=== PATIENT | female | born 1960 | race Caucasian/White ===

== ENCOUNTER 2020-01-05 06:00 | Outpatient (RCR) | payer OTHER, SELFPAY | END 2020-01-05 23:59 | disposition home or self-care (01) | LOC: WPT 06:00 | PROVIDERS: Referring Provider Nurse Practitioner Family; Visit Provider Nurse Practitioner Family | DX: H81.10 Benign paroxysmal vertigo, unspecified ear (principal) | CPT/HCPCS: 97110; 97161; 97530 ==

== ENCOUNTER 2020-01-06 06:00 | Outpatient (RCR) | payer OTHER, SELFPAY | END 2020-02-05 23:59 | disposition home or self-care (01) | LOC: WPT 06:00 | PROVIDERS: Referring Provider Nurse Practitioner Family; Visit Provider Nurse Practitioner Family | DX: H81.10 Benign paroxysmal vertigo, unspecified ear (principal) | CPT/HCPCS: 97110; 97530 ==

== ENCOUNTER → 2020-10-07 16:56 | Outpatient (BNVA) | payer OTHER, SELFPAY | PROVIDERS: Visit Provider Emergency Medicine | DX: Z20.828 Contact with and (suspected) exposure to other viral communicable diseases (principal) | CPT/HCPCS: 87635 ==

== ENCOUNTER → 2020-10-16 10:17 | Outpatient (BNVA) | payer OTHER, SELFPAY | PROVIDERS: Visit Provider Nurse Practitioner Family | DX: Z20.822 Contact with and (suspected) exposure to COVID-19 (principal) | CPT/HCPCS: 87635 ==

== ENCOUNTER 2020-10-26 15:25 | Emergency (ER) | payer OTHER, SELFPAY ==
[2020-10-26 15:54] VITALS: BP 172/82; PULSE 81; RESP 24; TEMP 36.6; O2SAT 98; BMI 34.9
--- NOTE | 2020-10-26 16:27 | XRR_ITS ---
PROCEDURE INFORMATION: Exam: XR Chest, 1 View Exam date and time: 10/26/2020 4:29 PM Age: 60 years old Clinical indication: Shortness of breath; Additional info: SOB TECHNIQUE: Imaging protocol: XR of the chest Views: 1 view. COMPARISON: No relevant prior studies available. FINDINGS: Lungs: Unremarkable. No consolidation. Pleural spaces: Unremarkable. No pleural effusion. No pneumothorax. Heart/Mediastinum: Unremarkable. No cardiomegaly. Bones/joints: Unremarkable. XR/XR chest 1V portable [id number] IMPRESSION: No acute findings.
--- NOTE | 2020-10-26 16:28 | ECG_ITS ---
[facility] Test Date: 2020-10-26 Pat Name: Magdalena Rodriguez Department: Room: Gender: Female Loader: : 1960 Requested By: Jeronimo Sears I Order Number: [id number] Reading MD: Jazmin Kumar M.D. Measurements Intervals [place] Rate: 71 P: 35 KS: 171 QRS: 26 QRSD: 126 T: 37 QT: 407 QTc: 444 Interpretive Statements SINUS RHYTHM POSSIBLE ANTERIOR MYOCARDIAL INFARCTION , PROBABLY OLD [30 ms Q WAVE IN V3/V4, OR R < 0.2 mV IN V4] No previous ECG available for comparison Electronically Signed On 10-27-2020 19:34:37 BOTTOM IRONER by Jazmin Kumar M.D. [id number]
[2020-10-26 17:37] LABS: Basophils % 0.4 %; Eosinophils # 0.1 10^3/uL (0.0-0.8); Eosinophils % 0.8 %; Hematocrit 42.5 % (37.0-47.0); Hemoglobin 14.6 g/dL (11.5-15.3); Lymphocytes # 2.2 10^3/uL (0.8-4.8); Lymphocytes % 28.8 %; Mean Corpuscular HGB Conc 34.4 g/dL (30.0-36.0); Mean Corpuscular Hemoglobin 30.7 pg (28.0-34.0); Mean Corpuscular Volume 89.3 fL (81-99); Mean Platelet Volume 10.3 fL (7.4-10.4); Monocytes # 0.7 10^3/uL (0.2-0.9); Monocytes % 9.1 %; Neutrophils # 4.69 10^3/uL (1.8-7.7); Neutrophils % 60.8 %; Nucleated Red Blood Cells % 0 %; Platelet Count 374 10^3/cmm (130-400); Red Blood Count 4.76 10^6/uL (4.1-5.3); Red Cell Distribution Width 12.6 % (12.1-15.1); White Blood Count 7.7 10^3/uL (4.0-10.0)
[2020-10-26 17:53] LABS: Lactic Sepsis W/Reflex 2.3 mmol/L (0.5-2.2)
[2020-10-26 17:56] LABS: Troponin(5th) Baseline 7 ng/L (0-10)
[2020-10-26 18:06] LABS: NT Pro B Type Natriuretic Pept 82 pg/mL (0-125); Procalcitonin 0.03 ng/mL (0-0.5)
[2020-10-26 18:17] LABS: Alanine Aminotransferase 29 U/L (0-33); Albumin Level 4.7 g/dL (3.5-5.2); Alkaline Phosphatase 89 IU/L (35-105); Aspartate Amino Transferase 22 U/L (0-32); Blood Urea Nitrogen 14 mg/dL (6-20); Calcium 10.7 mg/dL (8.5-10.5); Carbon Dioxide 23 mmol/L (22-29); Chloride 100 mmol/L (98-107); Globulin 3.2 g/dL (1.3-4.6); Glomerular Filtration Rate 102.7 mL/min (90-130); Glucose 79 mg/dL (65-115); Osmolality Calculated 285 mOsm/kg (285-295); Sodium 138 mmol/L (136-145); Total Bilirubin 0.5 mg/dL (0.15-1.2); Total Protein 7.9 g/dL (6.6-8.7)
[2020-10-26 18:18] LABS: Anion Gap 18.6 (5-19); Potassium 3.6 mmol/L (3.5-5.1)
--- NOTE | 2020-10-26 18:41 | CTR_ITS ---
PROCEDURE INFORMATION: Exam: CT Angiography Chest With Contrast Exam date and time: 10/26/2020 7:02 PM Age: 60 years old Clinical indication: Shortness of breath; Additional info: SOB, post covid TECHNIQUE: Imaging protocol: Computed tomographic angiography of the chest with contrast. 3D rendering (Not supervised by radiologist): MIP and/or 3D reconstructed images were created by the technologist. Radiation optimization: All CT scans at this facility use at least one of these dose optimization techniques: automated exposure control; mA and/or kV adjustment per patient size (includes targeted exams where dose is matched to clinical indication); or iterative reconstruction. Contrast material: OMNI 350; Contrast volume: 95 ml; Contrast route: INTRAVENOUS (IV); COMPARISON: CR XR chest 1V portable [id number] 10/26/2020 4:32 PM RADIATION DOSE METRICS: Total DLP (mGy-cm): 576.01 FINDINGS: Pulmonary arteries: Normal. No pulmonary emboli. Aorta: Unremarkable. No aortic aneurysm. No aortic dissection. Lungs: Unremarkable. No consolidation. No masses. Pleural spaces: Unremarkable. No pneumothorax. No pleural effusion. Heart: Unremarkable. No cardiomegaly. No pericardial effusion. Lymph nodes: Unremarkable. No enlarged lymph nodes. Bones/joints: Unremarkable. No acute fracture. Soft tissues: Unremarkable. CT/CT angio chest PE [facility] [id number] IMPRESSION: No acute findings. Radiation Dose CTDIVOL = (mGy): DLP = 576.01 (mGy-cm)
[2020-10-26] MEDS: iohexol 350 mg/mL 100 mL Btl IV (19:14)
[2020-10-26 19:22] LABS: Reflex Lactate Order REFLEX LACTIC ORDERD
[2020-10-26 19:27] VITALS: BP 203/112; PULSE 72; RESP 20; O2SAT 96
[2020-10-26 19:27] LABS: Troponin 5 2HR 7.48 ng/L (0-10); Troponin 5 2HR Delta 0.48 ABS# (0-10)
[2020-10-26 19:28] VITALS: O2SAT 96
[2020-10-26] MEDS: sodium chloride 0.9% 1,000 ML 999 ML IV (19:30)
--- NOTE | 2020-10-26 19:59 | W.ED.COVID ---
HPI - COVID General: Chief Complaint: COVID symptoms Stated Complaint: cough, trouble breathing Time Seen by Provider: 10/26/20 16:07 Source: patient Mode of arrival: ambulatory Limitations: no limitations Triage information: Has fever, cough or shortness of breath. Exposure to COVID + person last 14 days History of Present Illness: HPI Narrative: The patient is a 60-year-old female who was recently diagnosed with COVID-19 10 days ago. She was released off of quarantine 4 days ago. She has been having trouble breathing and got worse today. She went to see her primary care provider who wanted her evaluated especially for PE as she was dyspneic in the office. Oxygen saturations were normal in the office. Patient denies fever, continues to have cough and trouble breathing. MD complaint: known COVID positive Prior covid testing: yes, results known COVID 19 common symptoms: positive cough and dyspnea; negative fever(s), chills, non-productive cough, productive cough, fatigue, body aches, headache(s), loss of sense of smell and/or taste, throat pain, nasal congestion, nausea, vomiting or diarrhea COVID 19 other sytmptoms: negative chest pressure, chest pain, pleuritic pain, requiring oxygen, requiring more oxygen, respiratory distress, cyanosis, lethargy, confusion, new neurological complaints or other concerning symptoms Onset (ago): hour(s) (6) Severity: moderate Pertinent comorbid conditions: obesity Treatment prior to arrival: steroids COVID Results: SARS-CoV-2 RNA (RT-PCR) Detected (NOT DETECTED) A 10/16/20 10:17 10/16/20 Review of Systems General: Reports: 10 or more systems reviewed and unremarkable except in HPI and below Const: Denies: fever(s), chills, body aches or fatigue Eyes: Denies: change in vision or blurry vision ENMT: Denies: throat pain or nasal congestion Card: Denies: chest pain Resp: Reports: dyspnea; Denies: productive cough or non-productive cough GI: Denies: nausea, vomiting or diarrhea : Denies: flank pain, difficulty voiding, dysuria, urinary frequency, urinary urgency or urinary hesitancy Musc: Denies: neck pain, back pain or extremity swelling Skin/Breast: Denies: rash, pruritus or erythema Neuro: Denies: headache(s) or confusion Endo: Denies: polyuria, polydipsia or tired all the time [facility] ED PFSH: Medical History (Reviewed 10/26/20 @ 21:01 by Jeronimo Sears MD, [facility] [place]) Essential hypertension History of 2019 novel coronavirus disease (COVID-19) Mixed hyperlipidemia Surgical History (Reviewed 10/26/20 @ 21:01 by Jeronimo Sears MD, [facility] [place]) History of arthroplasty of both knees Social History (Reviewed 10/26/20 @ 21:01 by Jeronimo Sears MD, [facility] [place]) Smoking and tobacco status: never smoked Second hand smoke exposure: No Smoking risk assessment/counseling performed?: No Alcohol intake: never Desire information about alcohol rehabilitation?: No Counseling given: No Desire information about substance/drug rehabilitation?: No Counseling given: No Physical Exam Const: COMMON NORMALS: no acute distress, average body habitus, patient oriented x3, no limitations, healthy appearing, alert and well nourished Neck/C-Spine: COMMON NORMALS: full ROM, supple, no meningeal signs, no JVD and No carotid bruits Resp: COMMON NORMALS: No retractions, No use of accessory muscles, clear to auscultation bilaterally and percussion normal EFFORT & INSPECTION: Yes labored AUSCULTATION: clear to auscultation bilaterally PERCUSSION: percussion normal Cardio: COMMON NORMALS: no JVD, regular rate, regular rhythm, S1 normal heart sound present, S2 normal heart sound present, No gallops present (Cardio), No clicks present (Cardio), No murmurs present (Cardio), No rub (Cardio) and Peripheral pulses 2+ throughout RATE: regular rate RHYTHM: regular rhythm HEART SOUNDS: S1 normal heart sound present and S2 normal heart sound present PERIPHERAL PULSES: Peripheral pulses 2+ throughout GI: COMMON NORMALS: Normal to inspection, nondistended, normoactive bowel sounds present, Soft to palpation, non-tender, No hepatosplenomegaly present, no masses and no bruits PALPATION: Yes Soft to palpation and Yes No hepatosplenomegaly present Extremity: COMMON NORMALS: normal to inspection, full ROM, capillary refill normal, no calf tenderness and no pedal edema Neuro: COMMON NORMALS: patient oriented x3 SENSORIUM/ORIENTATION: Yes alert MENINGEAL SIGNS: Yes no meningeal signs Skin: COMMON NORMALS: no rashes or lesions noted, no wounds, turgor normal, no jaundice, no petechiae and no mottling GENERAL SKIN EXAM: no rashes or lesions noted and turgor normal Course Reevaluation(s): Reevaluation #1: Discussed her lab and imaging findings with her. Negative for acute findings. Mildly elevated lactic acid and she is given IV fluids. Negative high-sensitivity troponin x2. Negative CTA. Normal BNP. Nothing acute going on we will discharge her home. Advised that this may be the effect of the Covid and she is advised to rest and not go to work for another week. She voiced understanding and is in agreement with the plan. Time: 19:59 Vital Signs: Vital signs: Vital Signs Temperature 97.9 F 10/26/20 15:54 Pulse Rate 67 10/26/20 20:20 Respiratory Rate 22 H 10/26/20 20:20 Blood Pressure 203/112 10/26/20 19:27 Pulse Oximetry 97 10/26/20 20:20 MDM - COVID MDM Narrative: Medical decision making narrative: 60-year-old female patient who was recently diagnosed with COVID-19 and who presents with shortness of breath. She is off of her quarantine, evaluation in the ED was unremarkable. Negative high-sensitivity troponin, negative CTA of her lungs. She is discharged home with no new orders. Medical Records: Attestation: I reviewed the patient's medical records. Lab Data: Attestation: I reviewed the patient's lab results. Labs: Lab Results 10/26/20 10/26/20 10/26/20 Range/Units 17:26 17:26 17:26 WBC 7.7 (4.0-10.0) 10^3/ uL RBC 4.76 (4.1-5.3) 10^6/u L Hgb 14.6 (11.5-15.3) g/dL Hct 42.5 (37.0-47.0) % MCV 89.3 (81-99) fL MCH 30.7 (28.0-34.0) pg MCHC 34.4 (30.0-36.0) g/dL RDW 12.6 (12.1-15.1) % Plt Count 374 (130-400) 10^3/c mm MPV 10.3 (7.4-10.4) fL Neut % (Auto) 60.8 % Lymph % (Auto) 28.8 % [place] % (Auto) 9.1 % Eos % (Auto) 0.8 % Baso % (Auto) 0.4 % Neut # (Auto) 4.69 (1.8-7.7) 10^3/u L Lymph # (Auto) 2.2 (0.8-4.8) 10^3/u L [place] # (Auto) 0.7 (0.2-0.9) 10^3/u L Eos # (Auto) 0.1 (0.0-0.8) 10^3/u L Baso # (Auto) 0.0 (0.0-0.1) 10^3/u L Nucleated RBC % (a uto) 0 % Nucleated RBCs # 0.0 /100WBC Sodium 138 (136-145) mmol/L Potassium 3.6 (3.5-5.1) mmol/L Chloride 100 (98-107) mmol/L Carbon Dioxide 23 (22-29) mmol/L Anion Gap 18.6 (5-19) BUN 14 (6-20) mg/dL Creatinine 0.6 (0.5-0.9) mg/dL GFR Calculation 102.7 (90-130) mL/min Glucose 79 (65-115) mg/dL Calculated Osmolal ity 285 (285-295) mOsm/k g Lactic Acid 2.3 H (0.5-2.2) mmol/L Calcium 10.7 H (8.5-10.5) mg/dL Total Bilirubin 0.5 (0.15-1.2) mg/dL AST 22 (0-32) U/L ALT 29 (0-33) U/L Alkaline Phosphata se 89 (35-105) IU/L Troponin T Baselin e (0-10) ng/L Troponin T 120 Min con (0-10) ng/L Delta Troponin T (0-10) ABS# C-Reactive Protein 2.0 (0.0-4.9) mg/L NT-Pro-B Natriuret Pep 82 (0-125) pg/mL Total Protein 7.9 (6.6-8.7) g/dL Albumin 4.7 (3.5-5.2) g/dL Globulin 3.2 (1.3-4.6) g/dL Procalcitonin 0.03 (0-0.5) ng/mL 10/26/20 10/26/20 Range/Units 17:26 18:44 WBC (4.0-10.0) 10^3/ uL RBC (4.1-5.3) 10^6/u L Hgb (11.5-15.3) g/dL Hct (37.0-47.0) % MCV (81-99) fL MCH (28.0-34.0) pg MCHC (30.0-36.0) g/dL RDW (12.1-15.1) % Plt Count (130-400) 10^3/c mm MPV (7.4-10.4) fL Neut % (Auto) % Lymph % (Auto) % [place] % (Auto) % Eos % (Auto) % Baso % (Auto) % Neut # (Auto) (1.8-7.7) 10^3/u L Lymph # (Auto) (0.8-4.8) 10^3/u L [place] # (Auto) (0.2-0.9) 10^3/u L Eos # (Auto) (0.0-0.8) 10^3/u L Baso # (Auto) (0.0-0.1) 10^3/u L Nucleated RBC % (a uto) % Nucleated RBCs # /100WBC Sodium (136-145) mmol/L Potassium (3.5-5.1) mmol/L Chloride (98-107) mmol/L Carbon Dioxide (22-29) mmol/L Anion Gap (5-19) BUN (6-20) mg/dL Creatinine (0.5-0.9) mg/dL GFR Calculation (90-130) mL/min Glucose (65-115) mg/dL Calculated Osmolal ity (285-295) mOsm/k g Lactic Acid (0.5-2.2) mmol/L Calcium (8.5-10.5) mg/dL Total Bilirubin (0.15-1.2) mg/dL AST (0-32) U/L ALT (0-33) U/L Alkaline Phosphata se (35-105) IU/L Troponin T Baselin e 7 (0-10) ng/L Troponin T 120 Min con 7.48 (0-10) ng/L Delta Troponin T 0.48 (0-10) ABS# C-Reactive Protein (0.0-4.9) mg/L NT-Pro-B Natriuret Pep (0-125) pg/mL Total Protein (6.6-8.7) g/dL Albumin (3.5-5.2) g/dL Globulin (1.3-4.6) g/dL Procalcitonin (0-0.5) ng/mL Imaging Data: CTA Chest: Attestation: I personally reviewed and interpreted this imaging study as follows: Radiologist's impression: [id number] [address] [address] Scan Report Signed Patient: Magdalena Rodriguez #: [id number] : 2Acct#:[id number] Age/Sex: 60 / FADM Date: 10/26/20 Loc: ERRoom/Bed: Attending Dr: Ordering Provider/Ordering MD: Jeronimo Sears MD, [facility] [place] Date of Service: 10/26/20 Procedure(s): CT angio chest PE [facility] [address] Accession Number(s): [id number] Report Number: [id number] PROCEDURE INFORMATION: Exam: CT Angiography Chest With Contrast Exam date and time: 10/26/2020 7:02 PM Age: 60 years old Clinical indication: Shortness of breath; Additional info: SOB, post covid TECHNIQUE: Imaging protocol: Computed tomographic angiography of the chest with contrast. 3D rendering (Not supervised by radiologist): MIP and/or 3D reconstructed images were created by the technologist. Radiation optimization: All CT scans at this facility use at least one of these dose optimization techniques: automated exposure control; mA and/or kV adjustment per patient size (includes targeted exams where dose is matched to clinical indication); or iterative reconstruction. Contrast material: OMNI 350; Contrast volume: 95 ml; Contrast route: INTRAVENOUS (IV); COMPARISON: CR XR chest 1V portable [id number] 10/26/2020 4:32 PM RADIATION DOSE METRICS: Total DLP (mGy-cm): 576.01 FINDINGS: Pulmonary arteries: Normal. No pulmonary emboli. Aorta: Unremarkable. No aortic aneurysm. No aortic dissection. Lungs: Unremarkable. No consolidation. No masses. Pleural spaces: Unremarkable. No pneumothorax. No pleural effusion. Heart: Unremarkable. No cardiomegaly. No pericardial effusion. Lymph nodes: Unremarkable. No enlarged lymph nodes. Bones/joints: Unremarkable. No acute fracture. Soft tissues: Unremarkable. CT/CT angio chest PE protcl [id number] IMPRESSION: No acute findings. Radiation Dose CTDIVOL = (mGy): DLP = 576.01 (mGy-cm) Dictated By:Augustine Soliz Signed By:Vasquez Soliz Date/Time:10/26/201925 DD/ 23 CXR: Attestation: I personally reviewed and interpreted this imaging study as follows: Radiologist's impression: [address] [address] XRay Report Signed Patient: Magdalena Rodriguez #: [id number] : [facility][id number] Age/Sex: 60 / FADM Date: 10/26/20 Loc: ERRoom/Bed: Attending Dr: Ordering Provider/Ordering MD: Jeronimo Sears MD, [facility] [place] Date of Service: 10/26/20 Procedure(s): XR chest 1V portable [id number] Accession Number(s): [id number] Report Number: [id number] PROCEDURE INFORMATION: Exam: XR Chest, 1 View Exam date and time: 10/26/2020 4:29 PM Age: 60 years old Clinical indication: Shortness of breath; Additional info: SOB TECHNIQUE: Imaging protocol: XR of the chest Views: 1 view. COMPARISON: No relevant prior studies available. FINDINGS: Lungs: Unremarkable. No consolidation. Pleural spaces: Unremarkable. No pleural effusion. No pneumothorax. Heart/Mediastinum: Unremarkable. No cardiomegaly. Bones/joints: Unremarkable. XR/XR chest 1V portable [id number] IMPRESSION: No acute findings. Dictated By:Augustine Soliz Signed By:Vasquez Soliz Date/Time:10/26/20 165 DD/ 1653 EKG Data: EKG 1: Attestation: I personally reviewed and interpreted this EKG as follows: EKG interpretation date: 10/26/20 EKG interpretation time: 16:36 Prior EKG tracings: not available for review Interpretation: Normal sinus rhythm. Heart rate 71 bpm. Normal axis. No ST changes. COVID Results: SARS-CoV-2 RNA (RT-PCR) Detected (NOT DETECTED) A 10/16/20 10:17 10/16/20 Discharge Plan Discharge Patient Disposition: Home Clinical Impression: COVID-19, Viral syndrome Condition: Stable Prescriptions: Continued tizanidine 4 mg capsule 4 mg PO DAILY@2029 RF: 0 atenolol 50 mg tablet 50 tab PO DAILY@00 RF: 0 simvastatin 40 mg tablet 40 tab PO DAILY@2029 RF: 0 chlorthalidone 25 mg tablet 25 tab PO DAILY@00 RF: 0 paroxetine HCl 10 mg tablet 10 tab PO DAILY@2029 RF: 0 lidocaine HCl [Xylocaine] 10 mg/mL (1 %) solution 1 ml IM ONCE Qty: 1 RF: 0 dexamethasone sodium phosphate 4 mg/mL solution 4 mg IM ONCE Qty: 1 RF: 0 dexamethasone sodium phosphate 10 mg/mL solution 10 mg IM ONCE Qty: 1 RF: 0 lidocaine (PF) 20 mg/mL (2 %) solution 20 mg IM ONCE Qty: 1 RF: 0 meclizine 25 mg tablet 25 mg PO Q6H PRN (Reason: dizziness) RF: 0 biotin 10 mg Tablet 10 mg PO DAILY@2029 RF: 0 melatonin 10 mg Tablet 10 mg PO DAILY@2029 RF: 0 Discharge Orders: Discharge ED (Routine); Ordered 10/26/20 Ordered By: Jeronimo Sears Discharge Diet: Usual diet Discharge Activity: Increase activity as tolerated and Limit activity as instructed Patient Instructions: Viral Syndrome - Adult Activity Restrictions/Additional Instructions: Return for any new or worsening symptoms. Rest and did not perform any rigorous activities for the next week. Gradually resume your prior levels of activities. Follow-up with your primary care provider within 3 days. Continue home medications. Stand Alone Forms: Work/School Release Coding Level of Care Code ED [employer] Fwd Exam Detailed
[2020-10-26 20:20] VITALS: PULSE 67; RESP 22; O2SAT 97
== END 2020-10-26 20:26 | disposition home or self-care (01) ==
PROVIDERS: Emergency Provider Family Medicine
DX: U07.1 COVID-19 (principal); B34.9 Viral infection, unspecified; I10 Essential (primary) hypertension; E78.2 Mixed hyperlipidemia
CPT/HCPCS: 71045; 71275; 80053; 83605; 83880; 84145; 84484; 85025; 86140; 93005; 96360; 99283; J7030; Q9967

== ENCOUNTER → 2022-03-06 08:11 | Outpatient (BNVA) | payer OTHER, SELFPAY | PROVIDERS: PCP Nurse Practitioner Family; Visit Provider Nurse Practitioner | DX: R42 Dizziness and giddiness (principal); I10 Essential (primary) hypertension; E78.2 Mixed hyperlipidemia | CPT/HCPCS: 80053; 84443; 85025 ==

== ENCOUNTER → 2022-03-13 08:13 | Outpatient (BNVA) | payer OTHER, SELFPAY | PROVIDERS: PCP Nurse Practitioner Family; Visit Provider Nurse Practitioner | DX: E87.5 Hyperkalemia (principal) | CPT/HCPCS: 80053 ==

== ENCOUNTER 2024-05-24 16:45 | Outpatient (CLI) | payer OTHER, SELFPAY ==
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
== END 2024-05-24 16:46 | disposition home or self-care (01) ==
LOC: RAD 16:45
PROVIDERS: PCP Nurse Practitioner Family; Visit Provider Nurse Practitioner Family
DX: S22.41XA Multiple fractures of ribs, right side, initial encounter for closed fracture (principal); X58.XXXA Exposure to other specified factors, initial encounter
CPT/HCPCS: 71100

== ENCOUNTER → 2024-06-06 16:21 | Outpatient (BNVA) | payer OTHER, SELFPAY | PROVIDERS: PCP Nurse Practitioner Family; Visit Provider Nurse Practitioner Family | DX: S99.921A Unspecified injury of right foot, initial encounter (principal); S99.922A Unspecified injury of left foot, initial encounter; M79.672 Pain in left foot; M79.671 Pain in right foot; X58.XXXA Exposure to other specified factors, initial encounter | CPT/HCPCS: 73630 ==